=== PATIENT | female | born 1970 | race American Indian/Alaskan Native ===

== ENCOUNTER 2023-03-14 18:45 | Emergency (ER) | payer MEDICARE, MEDICAID ==
[2023-03-14] MEDS ORDERED: Acetaminophen 325 MG Tab PO ONE (19:42)
[2023-03-14 19:53] LABS: HEMATOCRIT 39.8 % (34.3-46.0); HEMOGLOBIN 13.5 g/dL (11.2-15.5); IMMATURE GRAN ABSOLUTE AUTO 0.02 K/uL (0.00-0.23); IMMATURE GRAN PERCENT AUTO 0.3 % (0.0-0.7); LYMPHOCYTES ABSOLUTE AUTO 1.42 K/uL (0.8-3.3); LYMPHOCYTES PERCENT AUTO 23.8 % (11.4-47.7); MEAN CORPUSCULAR HEMOGLOBIN 28.8 pg (31.6-35.5); MEAN CORPUSCULAR HGB CONC 33.9 g/dL (31.6-35.5); MONOCYTES ABSOLUTE AUTO 0.47 K/uL (0.20-0.90); MONOCYTES PERCENT AUTO 7.9 % (3.3-12.6); NEUTROPHILS ABSOLUTE AUTO 4.06 K/uL (1.0-7.6); PLATELET COUNT,PLT 192 K/uL (130-375); RED BLOOD CELL COUNT 4.68 M/uL (3.77-5.24)
[2023-03-14 20:08] LABS: CALCIUM 8.4 mg/dL (8.5-10.1); CREATININE 0.9 mg/dL (0.6-1.0); EST CRCL DRUG DOSING (CG) 70.01 mL/min; POTASSIUM,K 3.3 mmol/L (3.6-5.2)
[2023-03-14 20:10] LABS: ANION GAP 12.3 mmol/L (5.0-14.0)
== END 2023-03-14 21:04 ==
LOC: JP.ED 18:45
DX: R55 Syncope and collapse (principal); S70.02XA Contusion of left hip, initial encounter; Z88.6 Allergy status to analgesic agent; Z88.5 Allergy status to narcotic agent; Z88.0 Allergy status to penicillin; Z87.891 Personal history of nicotine dependence
CPT/HCPCS: 36415; 73502; 80048; 85025; 99284; A9270